=== PATIENT | male | born 1955 | race Caucasian/White ===

== ENCOUNTER → 2020-11-13 09:23 | Outpatient (CLI) | payer MEDICARE ==
[2014-03-26 14:51] VITALS: BMI 23.6
[~2020-11-13 09:23] MED LIST: ADVIL200 MG OR; ANTIVERT25 MG PO; COMBIVENT RESPIM4 GM INH; MAG-OX 400 MG400 MG PO; MIRALAX17 GM PO; MULTIPLE VITAMI1 TA1 OR; PROTONIX20 MG PO
== END | disposition home or self-care (01) ==
LOC: D.RAD 09:23
PROVIDERS: ATTEND Legal Medicine
DX: R07.82 Intercostal pain (principal)